=== PATIENT | female | born 1990 | race Caucasian/White ===

== ENCOUNTER 2017-05-04 13:42 | Emergency (ER) | END 2017-05-04 15:21 | disposition home or self-care (01) ==

== ENCOUNTER 2018-05-20 08:48 | Emergency (ER) | payer BC ==
[~2018-05-20] VITALS: Wt 89.0 kg
[~2018-05-20 08:48] MED LIST: CEPH-443 PO; IBUP-1542 PO
[2018-05-20 08:54] VITALS: BP 124/70; PULSE 89; RESP 18
[2018-05-20] MEDS ORDERED: BENZ-6 PO (09:25)
[2018-05-20] MEDS ORDERED: AZIT250T PO (09:25)
[2018-05-20] MEDS ORDERED: PROM6.2515 PO (09:25)
--- NOTE | 2018-05-20 10:45 | ERD ---
ER Documentation Chief Complaint Chief Complaint cough x 3 weeks HPI 27-year-old female presenting with cough times 2 weeks. Patient has had a productive cough. She states that 2 weeks ago she had the flu and her cough is persistent and become productive. Denies any fevers. Denies any medical problems. Has not taken medications for cough. NKDA. Surgical history denies. Social history denies ROS All systems reviewed and are negative except as per history of present illness. Medications Home Meds Active Scripts Benzonatate* (Tessalon Perle*) 100 Mg Capsule, 100 MG PO Q8H PRN for COUGH, #30 CAP Prov:LASHAUN ATWOOD-C 05/20/18 Promethazine Hcl* (Promethazine Hcl* Syrup) 6.25 Mg/5 Ml Syrup, 6.25 MG PO Q6H PRN for COUGH, #100 ML Prov:LASHAUN ATWOODC 05/20/18 Azithromycin* (Zithromax*) 250 Mg Tablet, 250 MG PO .ZPACK DIRECTED, #6 TAB TAKE 500 MG (2 TABS) THE FIRST DAY THEN 250 MG (1 TAB) DAYS 2-5 Prov:LASHAUN ATWOODC 05/20/18 Cephalexin* (Keflex*) 500 Mg Capsule, 500 MG PO QID for 5 Days, CAP Prov:OTIS GEORGE. NUTRITION TEACHER 05/04/17 Ibuprofen* (Motrin*) 600 Mg Tab, 600 MG PO Q6H PRN for PAIN AND OR ELEVATED TEMP, #30 TAB Prov:OTIS GEORGE. NUTRITION TEACHER 05/04/17 Allergies Allergies: Coded Allergies: No Known Allergy (Unverified , 02/28/14) PMhx/Soc Medical and Surgical Hx: pt denies Medical Hx, pt denies Surgical Hx Hx Alcohol Use: No Hx Substance Use: No Hx Tobacco Use: No Smoking Status: Never smoker FmHx Family History: No diabetes, No coronary disease, No other Physical Exam Vitals Vital Signs Date Temp Pulse Resp B/P (MAP) Pulse Ox O2 O2 Flow FiO2 Time Delivery Rate 05/20/18 97.4 89 18 124/70 99 08:54 (88) Physical Exam GENERAL: The patient is well-appearing, well-nourished, in no acute distress HEENT: Atraumatic. Conjunctivae are pink. Pupils equal, round, and reactive to light. There is no scleral icterus. Tympanic membranes clear bilaterally. Oropharynx clear. NECK: C-spine is soft and supple. There is no meningismus. There is no cervical lymphadenopathy. CHEST: Clear to auscultation bilaterally. There are no rales, wheezes or rhonchi. HEART: Regular rate and rhythm. No murmurs, clicks, rubs or gallops. Procedures/MDM MDM: 27-year-old female presenting with cough times 2 weeks. I have low suspicion for pneumonia however patient has had persistent and intensifying cough so I will treat with antibiotics to prophylax against developing infection. Patient will be also discharged with supportive medications. Patient is told symptoms change or worsen to return immediately to the ER. All questions answered at discharge Departure Diagnosis: Primary Impression: Cough Condition: Stable Patient Instructions: Cough, Chronic, Uncertain Cause, (Adult) Referrals: [facility] YOU HAVE RECEIVED A MEDICAL SCREENING EXAM AND THE RESULTS INDICATE THAT YOU DO NOT HAVE A CONDITION THAT REQUIRES URGENT TREATMENT IN THE EMERGENCY DEPARTMENT. FURTHER EVALUATION AND TREATMENT OF YOUR CONDITION CAN WAIT UNTIL YOU ARE SEEN IN YOUR DOCTORS OFFICE WITHIN THE NEXT 1-2 DAYS. IT IS YOUR RESPONSIBILITY TO MAKE AN APPOINTMENT FOR FOLOW-UP CARE. IF YOU HAVE A PRIMARY DOCTOR --you should call your primary doctor and schedule an appointment IF YOU DO NOT HAVE A PRIMARY DOCTOR YOU CAN CALL OUR PHYSICIAN REFERRAL HOTLINE AT IF YOU CAN NOT AFFORD TO SEE A PHYSICIAN YOU CAN CHOSE FROM THE FOLLOWING [facility] [address] [facility] [facility] [address] [facility] [facility] [address] [facility] [facility] [address] [facility] [facility] [address] [facility]. [facility]. [address] Additional Instructions: FOLLOW UP WITH YOUR PRIMARY CARE PHYSICIAN TOMORROW.Return to this facility if you are not improving as expected. LASHAUN ATWOOD PA-C May 20, 2018 10:45
== END 2018-05-20 10:25 | disposition home or self-care (01) ==
LOC: FTE 08:48
DX: R05 Cough (principal)
CPT/HCPCS: 99283